=== PATIENT | male | born 1985 | race Caucasian/White ===

== ENCOUNTER 2023-11-05 18:18 | Emergency (ER) | payer BC, SELFPAY ==
[2023-11-05 18:22] VITALS: BP 120/82
[2023-11-05] MEDS: TYLENOL 1000 MG PO (18:28)
[2023-11-05 18:41] LABS: % Basophils 0.2 % (0-2); % Immature Granulocytes 0.5 % (0-0.5); % Lymphocytes 9.2 % (20.5-51.1); % Monocytes 5.6 % (1.7-9.3); % Neutrophils 84.5 % (42.2-75.2); Absolute Immature Granulocytes 0.1 10^3/uL (0-0.05); Absolute Monocytes 0.6 10^3/uL (0.1-0.6); Absolute Neutrophils 9.1 10^3/uL (1.4-6.5); Hematocrit 42.4 % (39.0-52.0); Mean Corp Hgb Conc. 35.4 g/dL (33.0-37.0); Mean Corpuscular Hgb 29.4 pg (27.0-31.0); Mean Corpuscular Volume 83.1 fL (80.0-94.0); Mean Platelet Volume 8.8 fL (7.4-10.4); Nucleated Red Blood Cells % 0 % (-); Platelet Count 162 10^3/uL (130-400); Red Cell Dist. Width 11.9 % (11.5-14.5); White Blood Cell Count 10.7 10^3/uL (4.8-10.8)
[2023-11-05 18:54] LABS: Lactic Acid 1.2 mmol/L (0.7-2.0)
[2023-11-05 18:58] LABS: ALT (SGPT) 18 U/L (0-50); AST (SGOT) 27 U/L (17-59); Albumin 4.5 g/dl (3.5-5.0); Alkaline Phosphatase 72 U/L (38-126); Blood Urea Nitrogen 13 mg/dl (9-20); Calcium 9.1 mg/dl (8.4-10.2); Carbon Dioxide 26 mmol/L (22-30); Chloride 96 mmol/L (98-107); Glucose 124 mg/dl (70-99); Sodium 130 mmol/L (135-145); Total Bilirubin 0.9 mg/dl (0.2-1.3); Total Protein 7.2 g/dl (6.3-8.2); eGFR > 60.00
[2023-11-05 19:00] LABS: COVID-19 Antigen Negative (Negative)
[2023-11-05 22:09] VITALS: BP 156/84
[2023-11-05 22:12] VITALS: BMI 28.4
[2023-11-05] MEDS: MOTRIN 800 MG PO (22:39)
[2023-11-05 23:05] VITALS: BP 151/86
--- NOTE | 2023-11-05 23:05 | ED.GENMED ---
History of Present Illness
General
Chief Complaint: Fever
Source: patient
Exam Limitations: none
Time Seen by Provider: 11/05/23 22:24
Nursing documentation reviewed up to this point in time: agreed with
Travel History
Have you had any contact with someone who has COVID-19?: No
Do you have any symptoms of coronavirus? Fever > 100 degrees, chills, cough, shortness of breath, sore throat, loss of taste or smell, muscle aches, or headache?: No
History of Present Illness
History of Present Illness:
This is a 38-year-old gentleman who has history of ADHD, hypertension who complains of chills, aches, fever and mild sore throat that began last night. He felt somewhat improved this morning and went to work but symptoms returned late morning thus
he returned home from work and has been resting on the couch, sleeping intermittently throughout the day, taking ibuprofen as well as Tylenol. His last dose of ibuprofen was 11 AM and his last dose of Tylenol was this morning. Sore throat has been
mild to moderate in nature more so left posterior and he admits to similar left posterior sore throats generally with URI symptoms and he suffered an episode of strep throat a few months ago as well as several other family members with strep throat
at the same time. He denies cough, no nausea nor vomiting but does admit to poor appetite today. No diarrhea or constipation, no headache, no dizziness nor lightheadedness.
This evening after waking up from a nap he had generalized chills, aches and checked his temperature with a forehead scan and was concerned when it was reading between 104 and 106. His recommended he come to the ED for evaluation.
Temperature in triage 103.6 �F. He was given a dose of Tylenol 1000 mg at that time in triage.
Patient admits to feeling markedly improved, he continues with mild to moderate sore throat but no difficulty swallowing.
Past History
Past History
ED Past Medical History: HTN and Psychiatric
ED Past Surgical History: Other (Skin cancer removal)
Social History
Tobacco: Non-smoker
Alcohol: None
Drug: None
Personal:
Living: with family
Employment: Employed
Family History
Family History: Hypertension
Phy Exam
Physical Exam
Physical Exam:
GENERAL: 38-year-old gentleman appears his stated age, bright and alert, pleasant, appears in no acute distress. Speech is clear, non-muffled. No respiratory distress. No cough appreciated during exam.
EYE: pupils equal and reactive. anicteric
NECK: Supple, nontender, no meningismus, no significant adenopathy.
ENT: posterior pharynx has moderate global injection with mild bilateral tonsillar hypertrophy with very scant whitish exudate inferior tonsils bilaterally, oral mucosa is moist. TM clear b/l, nares patent.
CARDIAC: Regular rate and rhythm. no murmur.
LUNGS: Clear breath sounds bilaterally, no acute respiratory distress, no wheezes/rales/rhonchi
ABDOMEN: Soft, nondistended, without focal tenderness, no r/g, no cvat. normoactive BS.
NEUROLOGICAL: Alert and oriented x3, no focal neuro deficits. Gait is mendiola and steady.
SKIN: Warm and dry, normal color, skin intact. No rash.
MUSCULOSKELETAL: No C/C/E. peripheral pulses are full and equal b/l. No palpable tenderness.
PSYCH: Normal and appropriate interaction.
Course
Orders/Labs/Results
Orders:
Orders
11/05/23 18:26
Acetaminophen [Tylenol] 1,000 mg .ROUTE .STK-MED ONE
11/05/23 18:28
Acetaminophen [Tylenol] 1,000 mg PO NOW STA
11/05/23 18:35
COVID-19 Antigen Urgent
Source: Nasal Swab
Complete Blood Count/With Diff Urgent
Comprehensive Metabolic Panel Urgent
Lactic Acid Urgent
Blood Culture Urgent
CHERYL Source: Blood/Venous
Specimen Description:
Influenza A+B Rapid Molecular Urgent
CHERYL Source: Nasal Swab
Specimen Description:
11/05/23 22:34
Encourage PO Hydration-Treatme ONCE
Ibuprofen [Motrin] 800 mg PO NOW STA
11/05/23 22:40
Rapid Strep Group A Urgent
CHERYL Source: Throat/Pharynx
Specimen Description:
Date Specimen was Collected: 11/05/23
Time Specimen was Collected: 22:39
11/05/23 23:04
Amoxicillin 875 mg/Clav 125 mg [Augmentin 875 mg/125 mg] 1 tablet PO NOW STA
Abnormal Lab Results
11/05/23
18:35
Abs Immat Gran (auto) 0.1 H 10^3/uL
(0-0.05)
Absolute Neuts (auto) 9.1 H 10^3/uL
(1.4-6.5)
Absolute Lymphs (auto) 1.0 L 10^3/uL
(1.2-3.4)
Neutrophils % 84.5 H %
(42.2-75.2)
Lymphocytes % 9.2 L %
(20.5-51.1)
Sodium 130 L mmol/L
(135-145)
Chloride 96 L mmol/L
(98-107)
Glucose 124 H mg/dl
(70-99)
11/05/23 18:35
11/05/23 18:35
Vital Signs
Initial and Last Documented VS:
Initial Vital Signs
Temp Pulse Resp BP Pulse Ox
103.6 F H 125 18 120/82 99
11/05/23 18:22 11/05/23 18:22 11/05/23 18:22 11/05/23 18:22 11/05/23 18:22
Last Documented Vital Signs
Temp Pulse Resp BP Pulse Ox
100.7 F H 113 18 151/86 99
11/05/23 22:09 11/05/23 23:05 11/05/23 18:22 11/05/23 23:05 11/05/23 23:05
MDM/Problems Addressed
Differential Diagnosis Includes:
Acute febrile illness with pharyngitis, concern for viral pharyngitis, strep pharyngitis. Nothing on exam to suggest peritonsillar abscess.
Clinically appears euvolemic.
No history of immunocompromise nor risk factors for immunocompromise.
Fever improved to 100.7 after Tylenol. Will give a dose of ibuprofen now.
Labs are unremarkable. COVID and influenza testing are negative.
Will check rapid strep.
*Pulse Oximetry
Patient hypoxic: no
*Critical Care Note
Total Time (30-74mins, 75-104mins- exclusive of procedures): Not Applicable
Update Note
Update Note:
Rapid strep is positive for streptococcal leg. Will initiate a 10-day course of Augmentin.
Recommend supportive measures, staying well-hydrated, continue Tylenol versus ibuprofen as needed for fever, aches and a prescription for ibuprofen has been sent to his pharmacy.
Follow-up with PCP as needed.
Return precautions discussed.
ED Attending Note
-
Portions of this chart may have been created with voice recognition software.� Occasional wrong word or��sound alike� substitutions may have occurred due to the inherent limitations of voice recognition software.
Discharge Plan
Departure
Patient Disposition: Home (Routine Discharge)
Date of Disposition: 11/05/23
Time of Disposition: 23:06
Patient with high blood pressure during this ER visit?: No
Condition: Good
Discharge Problem:
Acute streptococcal pharyngitis
Instructions: Strep Throat (DC), Fever, Adult (DC)
Prescriptions:
New
amoxicillin-pot clavulanate 875-125 mg tablet
1 tab PO BID Qty: 20 0RF
ibuprofen 800 mg tablet
800 mg PO QIDPRN PRN (Reason: pain, fever) Qty: 30 0RF
No Action
sertraline 100 MG tablet
150 mg PO DAILY
amlodipine-benazepril 1 CAPSULE capsule
1 cap PO DAILY
amlodipine-benazepril 1 CAPSULE capsule
1 cap PO DAILY Qty: 30 0RF
Referrals:
Martin Sharp MD [Family Provider] - As needed
Interventions
Interventions:
*Risk Screen - Suicide Last Done: 11/05/23 18:22
*General Assessment Last Done: 11/05/23 18:22
*Neglect/Abuse Screening Last Done: 11/05/23 18:22
ED- Fall Risk Assessment Last Done: 11/05/23 23:08
*ED COVID-19 Vaccine History Last Done: 11/05/23 18:22
*Nursing Disposition Last Done: 11/05/23 23:08
ED- Neurological Assessment Last Done: 11/05/23 22:13
Discharge Date and Time
Discharge Date/Time: 11/05/23 23:21
Print Language: [email or web address]
[2023-11-05] MEDS: AUGMENTIN 875 MG/125 MG 1 TABLET PO (23:12)
== END 2023-11-05 23:21 | disposition home or self-care (01) ==
LOC: EMR 18:18
PROVIDERS: Emergency Medicine; EMERGENCY PHYSICIAN Emergency Medicine; FAMILY PHYSICIAN Family Medicine
DX: J02.0 Streptococcal pharyngitis (principal); Z11.52 Encounter for screening for COVID-19; I10 Essential (primary) hypertension; F90.9 Attention-deficit hyperactivity disorder, unspecified type; F42.9 Obsessive-compulsive disorder, unspecified; Z85.828 Personal history of other malignant neoplasm of skin
CPT/HCPCS: 99283; 80053; 83605; 85025; 87040; 87070; 87502; 87811; 87880